=== PATIENT | female | born 1955 | race Caucasian/White ===

== ENCOUNTER → 2020-09-10 12:28 | Outpatient (CLI) | payer OTHER, SELFPAY ==
--- NOTE | ~2020-09-10 | DEXA_ITS ---
Bone Density Report Name: Anne Oliva Age: 65 Sex: Female Ethnicity: White Date of : 1955 Indication: postmenopausal; screening for osteoporosis; Referring Provider: Antonette, Virginia Garay Study: Bone densitometry was performed. Exam Date: September 10, 2020 Accession number: [id number] Bone Density: Region BMD T-score Z-score Classification AP Spine (L1-L4) 0.973 -0.7 1.1 Normal Femoral Neck (Left) 0.739 -1.0 0.5 Normal Total Hip (Left) 0.924 -0.1 1.1 Normal Femoral Neck (Right) 0.738 -1.0 0.5 Normal Total Hip (Right) 0.841 -0.8 0.4 Normal Total Hip Mean 0.883 -0.5 0.8 Normal World Health Organization criteria for BMD impression classify patients as: Normal (T-score at or above -1.0), Osteopenia (T-score between -1.0 and -2.5), or Osteoporosis (T-score at or below -2.5). 10-year Fracture Risk: FRAX not reported because: All T-scores for Spine Total, Hip Total, Femoral Neck at or above -1.0 Previous Exams: Region Exam Age BMD T-score BMD Change BMD Change Date g/cm2 vs Baseline vs Previous AP Spine(L1-L4) 09/10/2020 65 0.973 -0.7 -0.066* 0.035* 01/09/2018 62 0.938 -1.0 -0.100* -0.005 10/03/2014 59 0.944 -0.9 -0.095* 0.006 09/08/2011 56 0.938 -1.0 -0.101* -0.012 07/04/2008 52 0.950 -0.9 -0.088* -0.034* 05/15/2006 50 0.984 -0.6 -0.054* -0.054* 01/26/2005 49 1.039 -0.1 Total Hip(Left) 09/10/2020 65 0.924 -0.1 N/A -5.6%* 01/09/2018 62 0.978 0.3 N/A 1.0% 10/03/2014 59 0.969 0.2 N/A 7.3%* 09/08/2011 56 0.903 -0.3 N/A 1.3% 07/04/2008 52 0.892 -0.4 N/A -7.8%* 05/15/2006 50 0.967 0.2 N/A -8.8%* 01/26/2005 49 1.061 1.0 N/A N/A 08/13/2003 48 N/A N/A Total Hip(Right) 09/10/2020 65 0.841 -0.8 N/A -8.2%* 01/09/2018 62 0.916 -0.2 N/A -1.7% 10/03/2014 59 0.932 -0.1 N/A 3.1%* 09/08/2011 56 0.904 -0.3 N/A 3.1% 07/04/2008 52 0.877 -0.5 N/A -2.1% 05/15/2006 50 0.896 -0.4 N/A -15.7%* 01/26/2005 49 1.063 1.0 N/A N/A 08/13/2003 48 N/A N/A *Denotes significance at 95% confidence level, LSC for AP Spine = 0.022 g/cm2, LSC for Total Hip = 0.027 g/cm2 Clinical Inf
--- NOTE | ~2020-09-10 | MM_ITS ---
EXAMINATION: MM screening nay BI w lisa HISTORY: Screening mammogram TECHNIQUE: Craniocaudal and mediolateral oblique 3-D tomosynthesis images were obtained and synthetic 2-D images were generated. CAD analysis was submitted and interpreted. COMPARISON: 01/31/2019, 01/09/2018, 12/01/2016 bilateral digital screening mammogram examinations BREAST PARENCHYMAL COMPOSITION: There are scattered areas of fibroglandular density. FINDINGS: There is no evidence of suspicious mass, calcification, or architectural distortion to sugg est malignancy in either breast. There has been no suspicious interval change. IMPRESSION: 1. No mammographic evidence of malignancy. 2. Recommend routine screening mammography in one year. BI-RADS Category 1: Negative Reviewed, dictated and finalized at location A.
== END ==
PROVIDERS: PCP Physician Assistant; Visit Provider Nurse Practitioner Obstetrics & Gynecology
DX: Z12.31 Encounter for screening mammogram for malignant neoplasm of breast (principal); Z13.820 Encounter for screening for osteoporosis; Z78.0 Asymptomatic menopausal state
CPT/HCPCS: 77063; 77067; 77080

== ENCOUNTER → 2021-12-06 10:33 | Outpatient (CLI) | payer MEDICARE, SELFPAY ==
--- NOTE | ~2021-12-06 | MM_ITS ---
EXAMINATION: MM screening nay BI w lisa HISTORY: Screening mammogram, family history of breast cancer in her mother. TECHNIQUE: Craniocaudal and mediolateral oblique 3-D tomosynthesis images were obtained and synthetic 2-D images were generated. CAD analysis was submitted and interpreted. COMPARISON: 09/10/2020, 01/21/2019, 01/09/2018 BREAST PARENCHYMAL COMPOSITION: There are scattered areas of fibroglandular density. FINDINGS: No suspicious mass, calcification, or architectural distortion are identified in either tea ast to suggest malignancy. There has been no suspicious interval change. IMPRESSION: 1. No mammographic evidence of malignancy. 2. Recommend routine screening mammography in one year. BI-RADS Category 1: Negative Reviewed, dictated and finalized at location A.
== END ==
PROVIDERS: PCP Physician Assistant; Visit Provider Physician Assistant
DX: Z12.31 Encounter for screening mammogram for malignant neoplasm of breast (principal)
CPT/HCPCS: 77063; 77067

== ENCOUNTER → 2022-04-26 09:04 | Outpatient (CLI) | payer MEDICARE, SELFPAY ==
--- NOTE | ~2022-04-26 | MR_ITS ---
EXAMINATION: MR ankle LT wo con DATE: 04/26/2022 09:46 INDICATION: Peroneal tendinopathy at the left ankle TECHNIQUE: Magnetic resonance imaging (MRI) of the left ankle was performed without intravenous contr ast. Sequences included sagittal, coronal, and axial proton-density weighted fast spin echo without a nd with fat saturation. COMPARISON: None. FINDINGS: Medial ankle ligaments: Deep and superficial deltoid ligaments as well as the spring ligament are normal. Lateral ankle ligaments: The anterior and posterior inferior tibiofibular ligaments are normal. The anterior talofibular and p osterior talofibular ligaments are normal. Mild thickening and increased signal of the calcaneofibula r ligament without surrounding edema consistent with mild scarring related to chronic sprain. Tendons: Mild Achilles tendinosis without tear or peritendinitis. Peroneal tenosynovitis. Fusiform thickening and increased signal of the peroneus longus and brevis tendons centered at level of the tip of the la teral malleolus consistent with moderate tendinopathy and split tearing of the peroneus longus and br daphne tendons. The tibialis anterior and extensor hallucis longus and extensor digitorum longus tendon s are normal. The tibialis posterior, flexor digitorum longus and flexor hallucis longus tendons are normal. Plantar fascia: Plantar aponeurosis is normal. Bones/other: Bone alignment is normal. No fracture or pathologic marrow replacing process. Mild polyarticular oste oarthritis at the left ankle and multiple joints in the mid and hindfoot. There is high-grade chondro malacia with mild subarticular edema-like signal change along the medial rim of the talar dome. Bone island in the anterior calcaneus. Fluid: Minimal ankle joint effusion. IMPRESSION: 1. Peroneal tenosynovitis with moderate tendinopathy and longitudinal split tearing of both the peron eus longus and brevis tendons. 2. Mild polyarticular osteoarthritis at the left ankle and visualized foot with small amount of high- grade chondral malacia along the medial rim of the talar dome. 3. Mild Achilles tendinosis. Reviewed, dictated and finalized at location L. IMPRESSION: 1. Peroneal tenosynovitis with moderate tendinopathy and longitudinal split tea ring of both the peroneus longus and brevis tendons. 2. Mild polyarticular osteoarthritis at the left ankle and visualized foot with small amount of high-grade chondral malacia along the medial rim of the talar dome. 3. Mild Achilles tendinosis.
== END ==
PROVIDERS: PCP Physician Assistant; Visit Provider Podiatrist Foot & Ankle Surgery
DX: M76.72 Peroneal tendinitis, left leg (principal); M19.072 Primary osteoarthritis, left ankle and foot
CPT/HCPCS: 73721

== ENCOUNTER 2022-09-07 03:22 | Day surgery (SDC) | payer MEDICARE, SELFPAY ==
[2022-08-25 14:14] VITALS: BMI 20.3
--- NOTE | 2022-09-06 20:05 | PM.HPGS ---
History of Present Illness History of Present Illness Consent: Risks, benefits, and alternatives have been discussed and questions answered. Patient agrees to proceed with procedure. Chief complaint: positive cologuard Narrative: Anne Oliva is a 67 year old female who is referred for colon cancer screening.. She had a + Cologuard test. Review of Systems Review of Systems: All systems reviewed & are unremarkable except as noted in HPI and below PMFSH Past Medical History Medical History Normal colonoscopy (~2006) Normal colonoscopy (~2016) Ovarian cyst (~2005) Ovarian cyst (~1979) Family History Family History Sibling Family history of autism Father Malignant neoplasm of prostate Family history of cardiovascular disease Mother Family history of malignant neoplasm of ovary Family history of malignant neoplasm of breast in first degree relative Other Diabetes mellitus Social History Social History Smoking status: Never smoker Second hand tobacco smoke exposure: No Alcohol intake: current Substance use type: does not use Living arrangements: alone Spiritual care concerns: No Meds Home Medications and Allergies Home Medications Medication Instructions Recorded Confirmed Type multivitamin 1 cap PO DAILY #30 caps 03/06/19 09/07/22 Rx calcium carbonate 600 mg calcium 600 mg PO DAILY 08/25/22 09/07/22 History (1,500 mg) tablet (Calcium) Allergies Allergy/AdvReac Type Severity Reaction Status Date / Time venom-wasp protein Allergy Swelling Verified 09/07/22 07:45 Exam Const: General: alert Orientation/consciousness: patient oriented x3 Resp: Auscultation: clear to auscultation bilaterally Cardio: Rhythm: regular rhythm GI: GI Palp: Yes Soft to palpation and No Tenderness to palpation present (GI) Neuro: General: patient oriented x3 Assessment and Plan Assessment and plan (1) Colon cancer screening: Code(s): Z12.11 - Encounter for screening for malignant neoplasm of colon Status: Acute Assessment and Plan: Colonoscopy with possible biopsy or polypectomy or cautery or injection of substances.
[2022-09-07 07:47] VITALS: BP 129/70; PULSE 106; RESP 16; O2SAT 98; BMI 19.5
[2022-09-07] MEDS: LACTATED RINGERS 1,000 ML 150 ML IV CONT (07:56)
--- NOTE | 2022-09-07 08:21 | P.PNAN_ITS ---
Anes - Initial Pre Proc Eval Procedure: Operation Date: 09/07/22 09:00 Proposed Procedures p Colonoscopy - Salbador Strauss MD Date/Time: 09/07/22 08:21 Surgeon: Salbador Strauss MD Pre Op Diagnosis: positive cologuard Patient Data Age: 67 Gender: F Height: 1.7 m Weight: 56.5 kg Last Vital Signs Pulse 106 H 09/07/22 07:47 Resp 16 09/07/22 07:47 BP 129/70 09/07/22 07:47 Pulse Ox 98 09/07/22 07:47 O2 Del Method Room Air 09/07/22 07:47 Allergies Allergy/AdvReac Type Severity Reaction Status Date / Time venom-wasp protein Allergy Swelling Verified 09/07/22 07:45 Home Medications Medication Instructions Recorded Confirmed Type multivitamin 1 cap PO DAILY #30 caps 03/06/19 09/07/22 Rx calcium carbonate 600 mg calcium 600 mg PO DAILY 08/25/22 09/07/22 History (1,500 mg) tablet (Calcium) Patient hx anesthesia problems: none Family hx anesthesia problems: none Results Review: All pre-operative results and documents have been reviewed as part of the pre- operative evaluation. [facility] Past Medical History Medical History (Updated 09/06/22 @ 20:06 by Salbador Strauss MD) Normal colonoscopy (~2006) Normal colonoscopy (~2016) Ovarian cyst (~2005) Ovarian cyst (~1979) Family History Family History Sibling Family history of autism Father Malignant neoplasm of prostate Family history of cardiovascular disease Mother Family history of malignant neoplasm of ovary Family history of malignant neoplasm of breast in first degree relative Other Diabetes mellitus Social History Social History Smoking status: Never smoker Second hand tobacco smoke exposure: No Alcohol intake: current Substance use type: does not use Living arrangements: alone Spiritual care concerns: No Anes - Eval Final PreProcedure Day of Procedure 09/07/22 08:21 Patient weight: normal Heart: regular rate and rhythm Lungs: clear to auscultation Airway: Mallampati scale class II Neurological: alert and oriented Last oral intake: >/= 8 hours ASA classification: I Emergent: no Anesthetic plan: proceed Anesthesia type and monitoring: general GIVS and standard monitoring Results Review: All pre-operative results and documents have been reviewed as part of the pre- operative evaluation. Informed Consent: The patient's anesthetic plan and its attendant risks and benefits were discussed with the patient/family/POA. Questions were solicited and answers provided to the satisfaction of the patient/family/POA.
[2022-09-07] MEDS: SIMETHICONE ORAL SUSPENSION 20 MG/0.3 ML 30 ML BOTTLE 0.6 ML IRRIGATION (09:07)
[2022-09-07 09:13] VITALS: BP 90/53; PULSE 70; RESP 18; O2SAT 97
[2022-09-07 09:23] VITALS: BP 102/70; PULSE 76; RESP 20; O2SAT 97
[2022-09-07 09:33] VITALS: BP 124/82; PULSE 72; RESP 20; O2SAT 100
== END 2022-09-07 09:46 | disposition home or self-care (01) ==
PROVIDERS: PCP Physician Assistant; Visit Provider Internal Medicine Gastroenterology
PROC: 0DJD8ZZ Inspection of Lower Intestinal Tract, Via Natural or Artificial Opening Endoscopic (ICD-10-PCS; CPT 45378; principal; 2022-09-07 09:00)
DX: Z12.11 Encounter for screening for malignant neoplasm of colon (principal); K57.30 Diverticulosis of large intestine without perforation or abscess without bleeding; R19.5 Other fecal abnormalities
CPT/HCPCS: G0121; J2704; J7120

== ENCOUNTER → 2023-02-16 12:29 | Outpatient (CLI) | payer MEDICARE, SELFPAY ==
--- NOTE | ~2023-02-16 | MM_ITS ---
EXAMINATION: MM screening nay BI w lisa HISTORY: Screening mammogram, family history of breast cancer in her mother. TECHNIQUE: Craniocaudal and mediolateral oblique 3-D tomosynthesis images were obtained and synthetic 2-D images were generated. CAD analysis was submitted and interpreted. COMPARISON: 12/06/2021, 09/10/2020, 01/21/2019 BREAST PARENCHYMAL COMPOSITION:Not Dense. There are scattered areas of fibroglandular density. FINDINGS: No suspicious mass, calcification, or architectural distortion are identified in either tea ast to suggest malignancy. There has been no suspicious interval change. IMPRESSION: No mammographic evidence of malignancy. Recommend routine screening mammography in one year. BI-RADS Category 1: Negative Reviewed, dictated and finalized at location . [facility]
== END ==
PROVIDERS: PCP Physician Assistant; Visit Provider Physician Assistant
DX: Z12.31 Encounter for screening mammogram for malignant neoplasm of breast (principal)
CPT/HCPCS: 77063; 77067

== ENCOUNTER 2024-06-05 12:17 | Outpatient (CLI) | payer MEDICARE, SELFPAY ==
--- NOTE | ~2024-06-05 | MM_ITS ---
EXAMINATION: MM screening nay BI w lisa HISTORY: Screening TECHNIQUE: Craniocaudal and mediolateral oblique 3-D tomosynthesis images were obtained and synthetic 2-D images were generated. CAD analysis was submitted and interpreted. COMPARISON: Comparison to multiple prior studies sequentially, with oldest reviewed study dated 10/2016. BREAST PARENCHYMAL COMPOSITION: Not dense: There are scattered areas of fibroglandular density. FINDINGS: There is no evidence of suspicious mass, calcification, or architectural distortion to sugg est malignancy in either breast. There has been no suspicious interval change. IMPRESSION: 1. No mammographic evidence of malignancy. 2. Recommend routine screening mammography in one year. BI-RADS Category 1: Negative Reviewed, dictated and finalized at location A.
== END 2024-06-05 12:18 | disposition home or self-care (01) ==
PROVIDERS: PCP Nurse Practitioner; Visit Provider Obstetrics & Gynecology
DX: Z12.31 Encounter for screening mammogram for malignant neoplasm of breast (principal)
CPT/HCPCS: 77063; 77067